=== PATIENT | female | born 1950 | race Caucasian/White ===

== ENCOUNTER 2024-03-16 16:04 | Emergency (ER) | payer MEDICARE, OTHER ==
[~2024-03-16] VITALS: Ht 167.6 cm; Wt 90.7 kg
[2024-03-16] MEDS ORDERED: TRAM50TA2 PO (17:42)
[2024-03-16 18:11] VITALS: BP 136/78; TEMP 98.2; O2SAT 98
== END 2024-03-16 18:11 | disposition home or self-care (01) ==
LOC: ER 16:49
DX: S93.491A Sprain of other ligament of right ankle, initial encounter (principal); Z79.899 Other long term (current) drug therapy; W22.8XXA Striking against or struck by other objects, initial encounter; Y93.89 Activity, other specified; Y92.89 Other specified places as the place of occurrence of the external cause; Y99.8 Other external cause status
CPT/HCPCS: 73610; A4606; A4663